=== PATIENT | male | born 1990 ===

== ENCOUNTER 2021-01-27 07:39 | Emergency (ER) | payer SELFPAY ==
--- NOTE | 2021-01-27 07:56 | Event Note ---
ED Screening Note Date of service: 01/27/21 Time: 07:53 ED Screening Note: 30-year-old -[place] female presents to the emergency room for 1 year of persistent bilateral hip and knee pain. Patient denies any injuries. Patient reports she can barely walk. She has difficulty lifting her foot. She does have a history of multiple myeloma and hypertension. Patient states she has been taking ibuprofen which she reports has not helped. She takes amlodipine for hypertension. She does not have a primary care provider. This initial assessment/diagnostic orders/clinical plan/treatment(s) is/are subject to change based on patients health status, clinical progression and re-assessment by fellow clinical providers in the ED. Further treatment and workup at subsequent clinical providers discretion. Patient/guardian urged not to elope from the ED as their condition may be serious if not clinically assessed and managed. Initial orders include:
[2021-01-27 08:34] LABS: Basophils # (Auto) 0.1 K/mm3 (0.0-0.1); Basophils % (Auto) 0.8 % (0.0-1.8); Eosinophils # (Auto) 0.1 K/mm3 (0.0-0.4); Hematocrit 42.7 % (35.5-45.6); Lymphocytes # (Auto) 1.8 K/mm3 (1.2-5.4); Lymphocytes % (Auto) 26.6 % (13.4-35.0); Mean Corpuscular HGB Conc 33 % (32-34); Mean Corpuscular Volume 84 fl (84-94); Monocytes # (Auto) 0.6 K/mm3 (0.0-0.8); Monocytes % (Auto) 8.9 % (0.0-7.3); Platelet Count 320 K/mm3 (140-440); Red Blood Count 5.09 M/mm3 (3.65-5.03); Red Cell Distribution Width 13.9 % (13.2-15.2)
--- NOTE | 2021-01-27 08:38 | Emergency Department Report ---
ED General Adult HPI - General Chief complaint: Extremity Injury, Lower Stated complaint: BILATERAL KNEE AND HIP PAIN Time Seen by Provider: 01/27/21 08:22 Source: patient Mode of arrival: Ambulatory Limitations: No Limitations - History of Present Illness Initial comments: Patient is 30 years old female with history of multiple myeloma. Patient presen shakir to the ER complaining of bilateral hip pain and bilateral knee pain, on and off for the last year. Patient denied any recent injury. Patient also denied any fever or chills. No focal weakness numbness or tingling sensation. Patient also denied any bowel or bladder incontinence. Patient stated that she is recently moved from [place]. Severity scale (0 -10): 10 - Related Data Allergies Allergy/AdvReac Type Severity Reaction Status Date / Time No Known Allergies Allergy Unverified 01/27/21 07:43 ED Review of Systems ROS: Stated complaint: BILATERAL KNEE AND HIP PAIN Other details as noted in HPI Comment: All other systems reviewed and negative Constitutional: denies: chills, fever Respiratory: denies: cough, shortness of breath, SOB with exertion Cardiovascular: denies: chest pain, palpitations Gastrointestinal: denies: abdominal pain, nausea, vomiting, diarrhea, constipation, hematemesis, melena, hematochezia Musculoskeletal: arthralgia, myalgia Neurological: denies: headache, weakness, numbness, paresthesias, confusion ED Past Medical Hx - Past Medical History Hx Hypertension: Yes Hx of Cancer: Yes (MELOMA) - Surgical History Past Surgical History?: Yes Additional Surgical History: EAR - Social History Smoking Status: Never Smoker Substance Use Type: None ED Physical Exam - General Limitations: No Limitations General appearance: alert, in no apparent distress - Head Head exam: Present: atraumatic, normocephalic, normal inspection - Eye Eye exam: Present: normal appearance, PERRL - ENT ENT exam: Present: normal exam, normal orophraynx, mucous membranes moist - Neck Neck exam: Present: normal inspection, full ROM. Absent: tenderness, meningismus - Respiratory Respiratory exam: Present: normal lung sounds bilaterally - Cardiovascular Cardiovascular Exam: Present: regular rate, normal rhythm, normal heart sounds - GI/Abdominal GI/Abdominal exam: Present: soft, normal bowel sounds. Absent: distended, tenderness, guarding, rebound, rigid, organomegaly, mass, bruit, pulsatile mass, hernia - Extremities Exam Extremities exam: Present: normal inspection, full ROM, normal capillary refill. Absent: tenderness, pedal edema, joint swelling, calf tenderness - Back Exam Back exam: Present: normal inspection, full ROM. Absent: CVA tenderness (R), CVA tenderness (L), muscle spasm, paraspinal tenderness, vertebral tenderness - Neurological Exam Neurological exam: Present: alert, oriented X3, CN II-XII intact, normal gait, reflexes normal. Absent: motor sensory deficit - Psychiatric Psychiatric exam: Present: normal mood - Skin Skin exam: Present: warm, intact, normal color ED Course Vital Signs 01/27/21 01/27/21 01/27/21 07:48 08:34 10:30 Temperature 98.6 F 98.1 F Pulse Rate 78 66 68 Respiratory 20 21 18 Rate Blood Pressure 145/99 Blood Pressure 149/106 144/98 [Left] O2 Sat by Pulse 94 100 96 Oximetry ED Medical Decision Making - Lab Data Result diagrams: 01/27/21 08:14 01/27/21 08:14 - Radiology Data Radiology results: report reviewed - Medical Decision Making Patient is 30 years old female with history of multiple myeloma. Patient presented to the ER complaining of bilateral hip pain and bilateral knee pain, on and off for the last year. Patient denied any recent injury. Patient also denied any fever or chills. No focal weakness numbness or tingling sensation. Patient also denied any bowel or bladder incontinence. Patient stated that she is recently moved from [place]. Labs reviewed and is unremarkable except for slightly elevated alkaline phosphatase and is most likely secondary to her multiple myeloma. Urine is positive for UTI. Patient received Toradol 60 IM for pain. Patient was given prescription for tramadol and Zofran. Patient given prescription for ciprofloxacin for UTI and advised to follow-up with Dr. Ybarra in the next 2 to 3 days and to follow-up with her primary care physician in the next 2 to 3 days and to return to the ER if she develop any new symptoms. Critical care attestation.: If time is entered above; I have spent that time in minutes in the direct care of this critically ill patient, excluding procedure time. ED Disposition Clinical Impression: Acute hip pain, bilateral, History of multiple myeloma, Acute bilateral knee pain, UTI (urinary tract infection) Disposition: TO HOME OR SELFCARE Is pt being admited?: No Condition: Stable Instructions: Hip Pain, Urinary Tract Infection, Adult Referrals: [facility] [Provider Group] - 3-5 Days KEILA YBARRA MD [Staff Physician] - 3-5 Days
[2021-01-27 08:47] LABS: Alanine Aminotransferase 51 units/L (7-56); Albumin 3.5 g/dL (3.9-5); BUN/Creatinine Ratio 14; Blood Urea Nitrogen 17 mg/dL (9-20); Calcium 8.7 mg/dL (8.4-10.2); Hemolysis Index 2
--- NOTE | 2021-01-27 10:03 | XRay Report ---
LEFT KNEE 4 VIEWS INDICATION / CLINICAL INFORMATION: Left knee pain. COMPARISON: None available. FINDINGS: BONES and JOINT(S): No acute fracture or subluxation. There is mild tricompartmental osteoarthritis. SOFT TISSUES: No significant abnormality. ADDITIONAL FINDINGS: None. IMPRESSION: 1. No acute findings. 2. Mild osteoarthritis. Signer Name: Wilfrido Damian MD Signed: 01/27/2021 9:58 AM Workstation Name: [id number]
--- NOTE | 2021-01-27 10:03 | XRay Report ---
BILATERAL HIPS 3 VIEWS INDICATION / CLINICAL INFORMATION: Bilateral hip pain. COMPARISON: None available. FINDINGS: BONES and JOINT(S): No acute fracture or subluxation. There is severe osteoarthritis of the hips, rig ht greater than left. SOFT TISSUES: No significant abnormality. ADDITIONAL FINDINGS: None. IMPRESSION: 1. No acute findings. 2. Severe osteoarthritis of the hips. Signer Name: Wilfrido Damian MD Signed: 01/27/2021 9:59 AM Workstation Name: [id number]
[2021-01-27 10:30] LABS: Bilirubin,Urine NEG (Negative); Blood,Urine NEG (Negative); Color,Urine Yellow (Yellow); Mucus,Urine FEW /HPF; Protein,Urine <15 mg/dL mg/dL (Negative); Urobilinogen,Urine < 2.0 mg/dL (<2.0)
[2021-01-27 10:31] VITALS: BP 144/98
[2021-01-27] MEDS ORDERED: KETOROLAC 60 MG/2 ML INJ IM ONE (11:17)
== END 2021-01-27 11:39 | disposition home or self-care (01) ==
LOC: ED 07:39
DX: M25.561 Pain in right knee (principal); M25.562 Pain in left knee; M25.551 Pain in right hip; M25.552 Pain in left hip; N39.0 Urinary tract infection, site not specified; I10 Essential (primary) hypertension; Z85.79 Personal history of other malignant neoplasms of lymphoid, hematopoietic and related tissues
CPT/HCPCS: 36415; 73521; 73560; 80053; 81001; 84702; 85025; 87086; 99284; J1885